=== PATIENT | female | born 1955 | race Caucasian/White ===

== ENCOUNTER 2019-11-16 06:49 | Day surgery (SDC) | payer OTHER ==
[~2019-11-16] VITALS: Ht 165.1 cm; Wt 81.2 kg
[2019-11-16 07:05] VITALS: BP 146/88; PULSE 58; TEMP 98.4
[2019-11-16] MEDS ORDERED: TOPROL XL 50MG50 MG PO (07:23)
[2019-11-16] MEDS ORDERED: CELEXA 20MG20 MG/TAB PO (07:24)
[2019-11-16] MEDS ORDERED: D3-5050000 IU PO (07:24)
[2019-11-16] MEDS ORDERED: PRIL40 PO (07:24)
[2019-11-16] MEDS ORDERED: CRESTOR40 MG PO (07:25)
[2019-11-16] MEDS ORDERED: ASPIRIN E.C. 8181 MG PO (07:26)
[2019-11-16 08:30] VITALS: BP 128/72; PULSE 63; TEMP 97.1
--- NOTE | 2019-11-16 08:30 | NUR ---
Patient arrives to [facility] via cart, accompanied by [facility] RN Paulina. Bedside report is received. She is drowsy, but easily awakens to voice. SHe ambulates to the chair in the room. Monitoring is applied -VSS on room air. Her spouse is at the bedside. Dr. Ly comes and speaks with the patient and her spouse. Call light in reach.
[2019-11-16 08:45] VITALS: BP 115/70; PULSE 57
--- NOTE | 2019-11-16 08:45 | NUR ---
Patient is more awake. She is conversing with her spouse. Gag reflex is intact. She is offered and receives water to drink. She does not want any food.
[2019-11-16 09:00] VITALS: BP 125/69; PULSE 55
--- NOTE | 2019-11-16 09:15 | NUR ---
Patient ambulates to the restroom with steady gait, voids, and returns to room.
--- NOTE | 2019-11-16 09:33 | NUR ---
Patient has met discharge criteria. Discharge instructions are discussed. She denies any questions and verbalizes understanding. PIV is removed with catheter intact and hemostasis achieved. She changes to her clothing independently. She is escorted to the exit via wheelchair by staff. She is discharged to home with ride in private vehicle at 0933.
== END 2019-11-16 09:33 | disposition home or self-care (01) ==
LOC: SDCO 06:49
DX: K31.7 Polyp of stomach and duodenum (principal); K22.70 Barrett's esophagus without dysplasia; K21.9 Gastro-esophageal reflux disease without esophagitis
CPT/HCPCS: J2250; J3010; J7030

== ENCOUNTER 2021-01-27 12:54 | Day surgery (SDC) | payer MEDICARE ==
[2021-01-27] VITALS (9 sets, daily range): BP systolic 108–160; BP diastolic 58–90; PULSE 52–66; TEMP 97.7–98
[~2021-01-27] VITALS: Ht 165.1 cm; Wt 71.6 kg
[~2021-01-27 12:54] MED LIST: ASPIRIN E.C. 8181 MG PO; CELEXA 20MG20 MG/TAB PO; CRESTOR40 MG PO; D3-5050000 IU PO; PRIL40 PO; TOPROL XL 50MG50 MG PO
[2021-01-27] MEDS ORDERED: AVALIDE 12.5 MG1 TA1 PO (13:38)
[2021-01-27] MEDS ORDERED: ONE-A-DAY ESSE1 EACH PO (13:39)
[2021-01-27] MEDS ORDERED: [UNRECOGNIZED DRUG - OTHER] PO (13:39)
[2021-01-27] MEDS ORDERED: MAGNESIUM250 M1 PO (13:41)
[2021-01-27] MEDS ORDERED: PROBIOTIC-MAJOR PO (13:41)
[2021-01-27] MEDS ORDERED: FIORICET 325 MG1 TA1 PO (13:42)
[2021-01-27] MEDS ORDERED: PYRIDIUM 100MG100 MG PO (16:12)
--- NOTE | 2021-01-27 19:00 | NUR ---
To room 342 from PACU. at bedside. A&Ox4-very drowsy. Denies pain/nausea. [address] way harris cath with CBI running at a moderate rate-reddish output with a few small clots. Plan of care discussed for this shift to include CBI/calling for pain/nausea/questions/concerns. Verbalizes understanding. Call light in reach. Will monitor.
--- NOTE | 2021-01-27 20:00 | NUR ---
Called with c/o pain/nausea. Noted to be dry heaving. Rating pain 8/10 to left side-described as stabbing pain. Dilaudid given. Zofran given for nausea. Will monitor.
--- NOTE | 2021-01-27 22:00 | NUR ---
Called with c/o nausea. Has vomitted 150mls clear fluid. Has not been able to tolerate any PO. Dilaudid/phenergan given per dr order. CBI continue to run at a moderate rate with light pink output. Will monitor.
[2021-01-28] VITALS: BP 138/56; PULSE 54; TEMP 98.1
--- NOTE | 2021-01-28 00:59 | NUR ---
Patient continues to be nauseated. Has not had any more emesis since 2199. Has not tolerated any PO-IV fluids continue to infuse @100mls/hr. CBI running at a moderate rate with light pink output. Has rested more comfortable since receiving IV dilaudid. Will continue to monitor.
[2021-01-28 03:47] VITALS: BP 143/72; PULSE 77; TEMP 98.4
--- NOTE | 2021-01-28 05:27 | NUR ---
Continued to be very nauseated throughout night. Patient states she has a very hard time with anesthesia. Received zofran/phenergan. Dilauidid x2 for pain control. CBI continued to run at a moderate rate with pink return/small clots. Has only tolerated 150mls of H2O-IV fluids continue to infuse to right FA IV. Currently resting eyes closed. Call light in reach/will monitor.
[2021-01-28 07:25] VITALS: BP 131/65; PULSE 83; TEMP 98.7
--- NOTE | 2021-01-28 07:31 | NUR ---
Bedside shift report complete. Pt. alert and she ordered a clear liquid tray for breakfast. Pt. reports a mild headache but denies other pain. Pt. educated on coughing, deep breathing, and oral care. Pt. reports she has a toothbrush. Pt. reports she is feeling a little better today. Contious bladder irrigation in place, urine is a pink/ red color. Pt. denies other needs at this time. Call light and belongings in reach.
[2021-01-28 11:02] VITALS: BP 164/75; PULSE 70; TEMP 98.4
--- NOTE | 2021-01-28 13:38 | NUR ---
Inking Machine Tender prayed and offered support with patient while family was in room.
--- NOTE | 2021-01-28 14:39 | NUR ---
Pt. and were wondering when the doctor would be by. Dr. Fuentse notified on the telephone to let him know pt. and family was wondering about plan of care. Dr. Fuentes reported he would be by to see them today.
[2021-01-28 16:00] VITALS: BP 154/79; PULSE 73; TEMP 98.8
--- NOTE | 2021-01-28 18:31 | NUR ---
Pt. progressing w/ plan of care. CBI has been infusing throughout the day. Dr. Fuentes in to see the pt. this afternoon. Pt. has been OOB in the chair for meals. Pt. reports a mild burning feeling to her urethra but other than that she denies pain and reports her 2/10 to her urethra is tolerable. Pt. was able to move her bowels. Pt. denies other needs at this time.
[2021-01-28 20:41] VITALS: BP 109/59; PULSE 81; TEMP 98.5
[2021-01-29 03:44] VITALS: BP 140/68; PULSE 72; TEMP 98.3
--- NOTE | 2021-01-29 04:10 | NUR ---
DAVILA OUTPUT HAS REMAINED PINK AND CLEAR ALL NIGHT WITH EXCEPTION OF AN OCCASIONAL CLOT. PT DENIES PAIN. CBI INFUSING AT A MODERATE RATE.
--- NOTE | 2021-01-29 06:45 | NUR ---
Pt. alert and just ordered breakfast. Pt. call light and belongings in reach. Pt. denies further needs at this time.
[2021-01-29 08:00] VITALS: BP 134/67; PULSE 82; TEMP 98.3
[2021-01-29 11:23] VITALS: BP 134/69; PULSE 85; TEMP 98.7
--- NOTE | 2021-01-29 12:42 | NUR ---
Pt. instructed on how to change harris cath drainage bag using aseptic technique. Pt. was able to demonstrate to this RN how to change her drainage bag using the teach back method. All discharge instructions provided to the pt. and all questions answered. Pt.'s to come back to pick her up for discharge.
--- NOTE | 2021-01-29 14:13 | NUR ---
SW met with patient to complete intake. Patient states that she lives in [place], [place]. Patient's spouse present during intake Manas [phone]. Patient states that she does not utilize DME, and is independent with ADL's. Patient provides that her PCP is Dr. Guillen, Pharmacy is [facility]. Patient provides that she does not have a DPOA-HC. SW asked/present DPOA/HC documentation to patient. Patient states that she would like to appoint her and daughter as DPOA/ALT. Documenation reviewed, completed, signed by patient and witnessed by nurse. Original documenation placed in chart and copies provided to patient. Patient states that her plan is to back to her home upon DC, and has no concerns with doing so. SW will continue to follow. DC plan:home with spouse
== END 2021-01-29 15:34 | disposition home or self-care (01) ==
LOC: SDCO 12:54 → SURG 18:55 → SDCO 01-29 15:34
DX: C67.9 Malignant neoplasm of bladder, unspecified (principal); N39.0 Urinary tract infection, site not specified; E78.00 Pure hypercholesterolemia, unspecified; I10 Essential (primary) hypertension; Z79.899 Other long term (current) drug therapy; E78.5 Hyperlipidemia, unspecified; G47.33 Obstructive sleep apnea (adult) (pediatric); K21.9 Gastro-esophageal reflux disease without esophagitis; K22.70 Barrett's esophagus without dysplasia
CPT/HCPCS: OP; C1769; C2617; J1170; J2250; J2405; J2550; J2704; J3480; J7120; Q9967

== ENCOUNTER 2021-02-17 06:27 | Day surgery (SDC) | payer MEDICARE ==
[2021-02-17] VITALS (11 sets, daily range): BP systolic 125–157; BP diastolic 73–92; PULSE 57–81; TEMP 97.5–98
[~2021-02-17] VITALS: Ht 165.1 cm; Wt 73.0 kg
[~2021-02-17 06:27] MED LIST changes: +AVALIDE 12.5 MG1 TA1 PO; +FIORICET 325 MG1 TA1 PO; +MAGNESIUM250 M1 PO; +ONE-A-DAY ESSE1 EACH PO; +PROBIOTIC-MAJOR PO; +PYRIDIUM 100MG100 MG PO; +[UNRECOGNIZED DRUG - OTHER] PO
[2021-02-17] MEDS ORDERED: ASPIRIN E.C. 8181 MG PO (07:39)
[2021-02-17] MEDS ORDERED: EPA FISH OIL1 SGL PO (07:41)
[2021-02-17] MEDS ORDERED: D3-5050000 IU PO (07:42)
--- NOTE | 2021-02-17 09:50 | NUR ---
PATIENT ADMITED INTO ROOM 330 POST OP. A&O. VSS. DENIES PAIN OR NAUSEA. DAVILA CLAMPED AND MITOMYCIN INSTILLED. IV FLUIDS INFUSING VIA PUMP INTO RIGHT AC IV. HEAD TO TOE ASSESSMENT COMPLETE. AT BEDSIDE. ORIENTED TO ROOM. CALL LIGHT IN REACH.
--- NOTE | 2021-02-17 11:00 | NUR ---
ASIM, RN AT BEDSIDE DISCUSSING REMOVAL OF MITOMYCIN TIME/TECHNIQUE/ORDERS WITH NURSING. VERIFIED WITH UROLOGY TO PUT DAVILA TO DD WHEN MITOMYCIN IS REMOVED. SEE ADDITIONAL NURSING ORDER.
--- NOTE | 2021-02-17 11:23 | NUR ---
ASIM JARAMILLO AT BEDSIDE TO REMOVE MITOMYCIN PER ORDERS.
--- NOTE | 2021-02-17 11:54 | NUR ---
Report recieved from Jase Dixon RN and from Emily Martin RN. Reported that pt had mitomycin instilled at 0924 in OR by physician. Problem with leakage of mitomycin from catheter was managed in the OR and pt now has a plug in her harris catheter which I am advised is to remain in place and to dependent drainage after mitomycin is drained from her bladder. Wearing PPE, harris was clamped and and plug removed. Leg bag was attached to harris and mitomycin was drained from harris approx 450ml. When this drainage was completed the harris was clamped again and the leg bag was sealed with cover. The harris drainage bag was then connected to the catheter and the harris was unclamped follwing chemotherapy hospital policy and using PPE. Waste was disposed of per procedure. Stat lock placed to secure harris. Skin on left thight and leg is intact without redness at this time. Skin prep used prior to statlock placement. I had already spoken with pt and her following their arrival in her room reviewing mitomycin instructions for handling at home. Appropriate signage in place for chemotherapy precautions. Pt tolerated the drainage well.
--- NOTE | 2021-02-17 13:20 | NUR ---
PATIENT REFUSED HOME MEDS TODAY AND WOULD RATHER TAKE THEM WHEN SHE GETS HOME.
--- NOTE | 2021-02-17 18:00 | NUR ---
PATIENT'S DAVILA CATH WAS NOT CLAMPED (METAL CLAMP) URINE HAD BEEN RUNNING UNDER BED TILL IT REACHED THE WALL WHERE NURSING & WALKED IN AND FOUND IT. CALLED INVESTIGATIVE SHOPPER, USED SPILL KIT & CALL HOUSE KEEPING. PATIENT ASSISTED TO BEDSIDE CHAIR. BED CLEANED & NEW LINENS IN PLACE. PATIENT TOLERATED WELL.
--- NOTE | 2021-02-17 21:40 | NUR ---
Pt. sitting up in bed. Pt. is A&OX3, assessment complete. INT to rt. ac patent. Pt. denies pain or other needs, call light within reach.
[2021-02-18 00:03] VITALS: BP 120/74; PULSE 69; TEMP 98.4
[2021-02-18 03:30] VITALS: BP 125/71; PULSE 77; TEMP 98
[2021-02-18 08:00] VITALS: BP 144/82; PULSE 67; TEMP 98.1
--- NOTE | 2021-02-18 08:00 | NUR ---
Patient sitting up in bed.Alert and oriented x 3. Assessment complete. Denies pain at this time. [place] to DD with clear yellow urine present. Patient denies additional needs at this time.
[2021-02-18 12:00] VITALS: BP 120/63; PULSE 69; TEMP 98.2
--- NOTE | 2021-02-18 14:10 | NUR ---
Discharge education provided to patient and spouse. Voiding well after harris discontinued. Encouraged fluid intake. Educated on when to call provider and follow up appointment. All questions answered. INT to LAC discontinued; catheter tip intact. Denies further needs at this time. Patient ambulated out with surgical staff.
== END 2021-02-18 14:10 | disposition home or self-care (01) ==
LOC: SURG 06:27 → SDCO 06:27 → SURG 09:50 → SDCO 16:00
DX: C67.2 Malignant neoplasm of lateral wall of bladder (principal); I10 Essential (primary) hypertension; E78.5 Hyperlipidemia, unspecified; G47.33 Obstructive sleep apnea (adult) (pediatric); K21.9 Gastro-esophageal reflux disease without esophagitis; Z20.822 Contact with and (suspected) exposure to COVID-19; Z99.89 Dependence on other enabling machines and devices; Z79.82 Long term (current) use of aspirin; Z79.899 Other long term (current) drug therapy
CPT/HCPCS: OP; J0690; J1100; J2405; J2704; J7120